=== PATIENT | male | born 1945 | race Caucasian/White ===

== ENCOUNTER 2017-08-07 14:48 | Inpatient (IN) | payer OTHER, MEDICAID ==
[~2017-08-07] VITALS: Ht 182.9 cm; Wt 83.9 kg
[2017-08-07 14:48] VITALS: BP_SYST 115
[2017-08-07] MEDS ORDERED: METOCLOPRAMIDE HCL 10 MG/2 ML VIAL IVP ONE (15:15)
[2017-08-07] MEDS ORDERED: MECLIZINE HCL 25 MG TABLET (ANITVERT) PO ONE (15:15)
[2017-08-07 15:33] LABS: BASOPHILS % (AUTO) 0.3 % (0.0-2.0); EOSINOPHILS # (AUTO) 0.2 K/uL (0.0-0.4); EOSINOPHILS % (AUTO) 2.3 % (0.0-4.0); HEMATOCRIT 48.1 % (36-54); HEMOGLOBIN 16.1 g/dL (14.0-18.0); LYMPHOCYTES # (AUTO) 1.5 K/uL (1.0-5.5); LYMPHOCYTES % (AUTO) 21.1 % (20.5-51.5); MEAN CORPUSCULAR HEMOGLOBIN 32 pg (27-31); MEAN CORPUSCULAR HGB CONC 34 % (32-36); MEAN CORPUSCULAR VOLUME 94 fL (79.0-98.0); MONOCYTES # (AUTO) 0.4 K/uL (0.0-1.0); MONOCYTES % (AUTO) 6.4 % (1.7-9.3); NEUTROPHILS # (AUTO) 4.9 K/uL (1.8-7.7); NEUTROPHILS % (AUTO) 69.9 % (40.0-70.0); PLATELET COUNT (AUTO) 170 K/uL (130-430); RED BLOOD CELL COUNT(AUTO) 5.09 MIL/uL (4.2-6.2); RED CELL DISTRIBUTION WIDTH 11.7 % (9.0-15.0)
[2017-08-07 15:44] LABS: ANION GAP 8 (5-15); CALCIUM 9.5 mg/dL (8.4-11.0); CHLORIDE 106 mmol/L (98-107); CREATININE 1.45 mg/dL (0.55-1.30); GLUCOSE 160 mg/dL (70-99); POTASSIUM 3.8 mmol/L (3.5-5.1); SODIUM SERUM 138 mmol/L (136-145); UREA NITROGEN, BLOOD 19 mg/dL (8-21)
[2017-08-07 15:45] LABS: PROTHROMBIN TIME 10.4 SECS (9.5-12.5)
[2017-08-07 15:49] LABS: ALANINE AMINOTRANSFERASE 33 U/L (12-78); ALBUMIN 3.9 g/dL (3.4-4.8); ASPARTATE AMINOTRANSFERASE 13 U/L (10-37); TOTAL BILIRUBIN 1.6 mg/dL (0.0-1.0)
[2017-08-07] MEDS ORDERED: ASPIRIN 325 MG TABLET PO ONE (17:00)
[2017-08-07] MEDS ORDERED: LISI-600 PO (17:18)
[2017-08-07] MEDS ORDERED: LIP10 PO (17:18)
[2017-08-07] MEDS ORDERED: TAMS-11 PO (17:18)
[2017-08-07 18:19] VITALS: BP_SYST 118
[2017-08-07] MEDS: D5/0.45 NS 1,000 ML IV SCH (18:27)
[2017-08-07 20:00] VITALS: BP_SYST 110
[2017-08-07 23:52] LABS: CHOLESTEROL 145 mg/dL (<200); HDL CHOLESTEROL 39 mg/dL (>45); LDL CHOLESTEROL 94 mg/dL (<100); TRIGLYCERIDES 92 mg/dL (30-150)
[2017-08-08] VITALS (8 sets, daily range): BP systolic 103–140
[2017-08-08 06:21] LABS: BASOPHILS % (AUTO) 0.6 % (0.0-2.0); EOSINOPHILS # (AUTO) 0.2 K/uL (0.0-0.4); EOSINOPHILS % (AUTO) 2.8 % (0.0-4.0); HEMATOCRIT 46.5 % (36-54); HEMOGLOBIN 15.4 g/dL (14.0-18.0); LYMPHOCYTES # (AUTO) 1.7 K/uL (1.0-5.5); LYMPHOCYTES % (AUTO) 28.2 % (20.5-51.5); MEAN CORPUSCULAR HEMOGLOBIN 32 pg (27-31); MEAN CORPUSCULAR HGB CONC 33 % (32-36); MEAN CORPUSCULAR VOLUME 96 fL (79.0-98.0); MONOCYTES # (AUTO) 0.5 K/uL (0.0-1.0); MONOCYTES % (AUTO) 7.6 % (1.7-9.3); NEUTROPHILS # (AUTO) 3.6 K/uL (1.8-7.7); NEUTROPHILS % (AUTO) 60.8 % (40.0-70.0); PLATELET COUNT (AUTO) 146 K/uL (130-430); RED BLOOD CELL COUNT(AUTO) 4.85 MIL/uL (4.2-6.2)
[2017-08-08 06:49] LABS: ALANINE AMINOTRANSFERASE 29 U/L (12-78); ALBUMIN 3.5 g/dL (3.4-4.8); ANION GAP 7 (5-15); ASPARTATE AMINOTRANSFERASE 12 U/L (10-37); CHLORIDE 107 mmol/L (98-107); CREATININE 1.21 mg/dL (0.55-1.30); GLUCOSE 105 mg/dL (70-99); POTASSIUM 3.9 mmol/L (3.5-5.1); SODIUM SERUM 139 mmol/L (136-145); TOTAL BILIRUBIN 1.7 mg/dL (0.0-1.0); UREA NITROGEN, BLOOD 19 mg/dL (8-21)
[2017-08-08] MEDS: D5/0.45 NS 1,000 ML IV SCH (08:32)
[2017-08-08] MEDS ORDERED: ASPIRIN 81 MG TAB.CHEW PO SCH (09:00)
[2017-08-08] MEDS ORDERED: LISINOPRIL 20 MG TABLET PO SCH (09:00)
[2017-08-08] MEDS ORDERED: ATORVASTATIN 10 MG TABLET PO SCH (21:00)
[2017-08-08] MEDS ORDERED: TAMSULOSIN HCL 0.4 MG CAP PO SCH (21:00)
== END 2017-08-08 19:41 | disposition home or self-care (01) | DRG 93 ==
LOC: SED 14:48 → STU 17:12 → OBSVTOIN 08-08 06:38
PROVIDERS: ADMIT Internal Medicine Hospice and Palliative Medicine; ATTEND Internal Medicine Hospice and Palliative Medicine
DX: R26.81 Unsteadiness on feet (principal); E78.00 Pure hypercholesterolemia, unspecified; R42 Dizziness and giddiness; E78.5 Hyperlipidemia, unspecified; I10 Essential (primary) hypertension; N40.0 Benign prostatic hyperplasia without lower urinary tract symptoms; Z79.899 Other long term (current) drug therapy; R27.0 Ataxia, unspecified
CPT/HCPCS: 36415; 70450-TC; 70551; 71010; 80053; 80061; 82550-TC; 84484; 85025; 85610-TC; 85730-TC; 93005; 93306; 93880; 96374; 97116-GP; 99285; G0378; J2765; J8597